=== PATIENT | female | born 1995 | race Caucasian/White ===

== ENCOUNTER 2018-11-15 22:13 | Emergency (ER) | payer BC ==
[~2018-11-15] VITALS: Ht 167.6 cm; Wt 99.8 kg
[~2018-11-15 22:13] MED LIST: MULVITMINE PO; NAPR500 PO; Robaxin500 MG PO
[2018-11-15] MEDS ORDERED: BIRTH CONTROL (22:23)
== END 2018-11-16 01:20 | disposition home or self-care (01) ==
LOC: ER 22:13
DX: M54.42 Lumbago with sciatica, left side (principal)
CPT/HCPCS: 72100; 99283-25

== ENCOUNTER → 2019-03-17 | Outpatient (CLI) | payer OTHER ==
[~2019-03-17] MED LIST changes: +BIRTH CONTROL
[2019-03-18 06:32] LABS: Candida species (DNA Probe) Positive (NEGATIVE); G. vaginalis (DNA Probe) Negative (NEGATIVE); T. vaginalis (DNA Probe) Negative (NEGATIVE)
[2019-03-20 03:15] LABS: CHLAMYDIA TRACHOMATIS, NAA Negative (Negative); NEISSERIA GONORRHOEAE, NAA Negative (Negative)
== END | disposition home or self-care (01) ==
LOC: LAB 13:45 → LAB SHORT 13:45
PROVIDERS: Obstetrics & Gynecology
DX: Z11.3 Encounter for screening for infections with a predominantly sexual mode of transmission (principal); N89.8 Other specified noninflammatory disorders of vagina
CPT/HCPCS: 87480; 87491; 87510; 87591; 87660

== ENCOUNTER → 2020-10-20 | Outpatient (CLI) | payer OTHER ==
[~2020-10-20] MED LIST changes: +DOCU100 PO; +IBUP800 PO; +PRENATAL TABLE1 EAC2 PO
== END ==
LOC: LAB 19:52 → LAB SHORT 19:52
DX: R30.9 Painful micturition, unspecified (principal)
CPT/HCPCS: 87086

== ENCOUNTER → 2021-02-09 | Outpatient (CLI) | payer OTHER | END | disposition home or self-care (01) | LOC: LAB 17:59 → LAB SHORT 17:59 | DX: N39.0 Urinary tract infection, site not specified (principal) | CPT/HCPCS: 87077; 87086; 87186 ==

== ENCOUNTER → 2021-09-28 | Outpatient (CLI) | payer BC ==
[2021-10-05 00:07] LABS: CHLAMYDIA TRACHOMATIS, NAA Negative (Negative); HPV APTIMA Positive (Negative); HPV GENOTYPE 16 Negative (Negative)
== END | disposition home or self-care (01) ==
LOC: LAB 11:45 → LAB SHORT 11:45
PROVIDERS: Advanced Practice Midwife
DX: Z01.419 Encounter for gynecological examination (general) (routine) without abnormal findings (principal); Z11.3 Encounter for screening for infections with a predominantly sexual mode of transmission
CPT/HCPCS: 87491; 87591; G0123

== ENCOUNTER → 2021-11-09 | Outpatient (CLI) | payer BC | END | disposition home or self-care (01) | LOC: LAB SHORT 13:42 → LAB 13:42 | DX: R87.610 Atypical squamous cells of undetermined significance on cytologic smear of cervix (ASC-US) (principal) | CPT/HCPCS: 88305 ==

== ENCOUNTER → 2022-05-10 | Outpatient (CLI) | payer BC ==
[2022-05-10 11:54] LABS: BASOPHILS ABSOLUTE AUTO 0.03 K/mm3 (0.00-0.23); BASOPHILS PERCENT AUTO 0 % (0-2); EOSINOPHILS ABSOLUTE AUTO 0.19 K/mm3 (0.00-0.68); EOSINOPHILS PERCENT AUTO 2 % (0-6); Hemoglobin 14.9 g/dL (11.5-16.0); IMMATURE GRAN ABSOLUTE AUTO 0.02 K/mm3 (0.00-0.10); IMMATURE GRAN PERCENT AUTO 0 % (0-1); LYMPHOCYTES ABSOLUTE AUTO 0.96 K/mm3 (0.84-5.20); LYMPHOCYTES PERCENT AUTO 10 % (21-46); MONOCYTES ABSOLUTE AUTO 0.55 K/mm3 (0.16-1.47); MONOCYTES PERCENT AUTO 6 % (4-13); Mean Corpuscular HGB 30.5 pg (26.0-34.0); Mean Corpuscular HGB Conc 34.7 g/dL (31.5-36.5); Mean Corpuscular Volume 88 fL (80-100); Mean Platelet Volume 9.6 fL (9.1-12.4); NEUTROPHILS ABSOLUTE AUTO 8.11 K/mm3 (1.96-9.15); NEUTROPHILS PERCENT AUTO 82 % (41-73); Platelet Count 282 K/mm3 (150-400); RDW Coefficient Variation 12.3 % (11.7-14.2); RDW Standard Deviation 39.5 fL (35.1-46.3); Red Blood Cell Count 4.88 M/mm3 (3.80-5.20); White Blood Cell Count 9.86 K/mm3 (4.00-11.30)
[2022-05-10 12:18] LABS: Albumin, Blood 4.3 g/dL (3.4-5.0); Albumin/Globulin Ratio 1.2 (0.8-1.8); Bilirubin, Total 0.6 mg/dL (0.1-1.0); Bun/Creatinine Ratio 17.5 (12.0-20.0); Calcium, Blood 9.3 mg/dL (8.5-10.1); Creatinine, Blood 1.03 mg/dL (0.40-1.00); Globulin, Blood 3.7 g/dL (2.2-4.0); Potassium, Blood 4.1 mmol/L (3.5-5.5)
== END | disposition home or self-care (01) ==
LOC: LAB SHORT 11:49
PROVIDERS: Physician Assistant
DX: R11.2 Nausea with vomiting, unspecified (principal)
CPT/HCPCS: 80053; 85025

== ENCOUNTER 2022-09-18 09:10 | Day surgery (SDC) | payer OTHER ==
[2022-09-18] VITALS (17 sets, daily range): BP systolic 85–119; BP diastolic 54–74
[~2022-09-18] VITALS: Ht 167.6 cm; Wt 108.8 kg
--- NOTE | 2022-09-18 10:03 | NUR ---
Ambulatory in Day Surgery. Pre-Op teaching done. Pt verbalizes understanding. Patient confirms NPO status and agrees with scheduled surgery. Patient reports completing Chlorhexadine shower X2 prior to admission to hospital. History, Chart, Medications and Allergies reviewed before start of procedure. Lungs clear T/O to Auscultation. Patient States Post-Procedure ride home has been arranged.
--- NOTE | 2022-09-18 15:30 | NUR ---
ARRIVAL TO UNIT ARRIVES IN [facility], 4 PERSON SLIDE TO HOSPITAL BED. ASSESSMENT CHARTED. K-PAD TO ABD. DENIES N/V. CLEAR LQ's GIVEN.
--- NOTE | 2022-09-18 19:13 | NUR ---
SHIFT SUMMARY PT HAS BEEN FATIGUED SINCE ARRIVAL. PAIN IS REASONABLY MANAGED. C/O NAUSEA w/ NO EMESIS. RELIEF w/ ZOFRAN. URINE CLEAR. PLAN IS TO DC RICHARD AROUND 2100.
--- NOTE | 2022-09-18 23:52 | NUR ---
PVR: PT VOIDED 300 ML URINE, PVR BLADDER SCAN SHOWING 8ML
[2022-09-19 06:27] VITALS: BP 108/61
--- NOTE | 2022-09-19 07:25 | NUR ---
POD 1 S/P LAVH. PT VSS, INCISIONS CDI. PT HAD MOD AMT VAGINAL BLEEDING, BUT IS DECREASING THIS AM. PT STRUGGLED W/N/V FOR FIRST HALF OF NIGHT, NEW NAUSEA MED ORDERS REC W/REPORTED IMPROVEMENT PER PT. PT SALINA SMALL AMT PO THIS AM. FOELY CATH D/C, PT IS VOIDING URINE W/O DIFFICULTY. PT UP OOB W/SBA, SALINA WELL THIS AM. NO IGNITION RISKS IDENTIFIED. BEDSIDE REPORT GIVEN TO Cole MYERS RN.
[2022-09-19 07:29] VITALS: BP 102/64
--- NOTE | 2022-09-19 10:47 | NUR ---
DISCHARGE ESCORTED OUT VIA WC. PAIN WELL CONTROLLED. DENIES N/V. INSTRUCTED TO CALL DR RODRIGUEZ's OFFICE IF RETURNS. EATING, DRINKING, VOIDING, & PASSING GAS. SURG SITES WNL.
== END 2022-09-19 10:54 | disposition home or self-care (01) ==
LOC: ORSCMMR 09:10 → ORD 10:30 → SURS 15:12 → ORSCMMR 09-19 10:54
PROVIDERS: Obstetrics & Gynecology
PROC: 0JQC0ZZ Repair Pelvic Region Subcutaneous Tissue and Fascia, Open Approach (ICD-10-PCS; principal; 2022-09-18 10:30)
PROC: 0UT9FZZ Resection of Uterus, Via Natural or Artificial Opening With Percutaneous Endoscopic Assistance (ICD-10-PCS; principal; 2022-09-18 10:30)
PROC: 0UT7FZZ Resection of Bilateral Fallopian Tubes, Via Natural or Artificial Opening With Percutaneous Endoscopic Assistance (ICD-10-PCS; principal; 2022-09-18 10:30)
PROC: 8E0W4CZ Robotic Assisted Procedure of Trunk Region, Percutaneous Endoscopic Approach (ICD-10-PCS; principal; 2022-09-18 10:30)
DX: N81.89 Other female genital prolapse (principal); N93.9 Abnormal uterine and vaginal bleeding, unspecified; N83.8 Other noninflammatory disorders of ovary, fallopian tube and broad ligament; Q50.5 Embryonic cyst of broad ligament; N81.10 Cystocele, unspecified; N81.5 Vaginal enterocele; E66.9 Obesity, unspecified; Z68.38 Body mass index [BMI] 38.0-38.9, adult
CPT/HCPCS: 58571; 57240; S2900; 86850; 86900; 86901; 88307; 94760; A9270; J0690; J0780; J1100; J1885; J2250; J2371; J2405; J2704; J2765; J3010; J7120